=== PATIENT | female | born 1955 | race Caucasian/White ===

== ENCOUNTER → 2017-01-18 | Outpatient (CLI) | payer BC, MEDICARE | END | disposition home or self-care (01) | LOC: GMAJ 10:34 | PROVIDERS: ATTEND Family Medicine | DX: E53.8 Deficiency of other specified B group vitamins (principal); E03.9 Hypothyroidism, unspecified; M89.9 Disorder of bone, unspecified ==

== ENCOUNTER → 2017-07-22 | Outpatient (CLI) | payer OTHER, MEDICARE | LOC: LAB.O 13:33 | PROVIDERS: ATTEND Nurse Practitioner Family | DX: R06.02 Shortness of breath (principal) ==

== ENCOUNTER → 2017-07-26 | Outpatient (CLI) | payer OTHER, MEDICARE ==
--- NOTE | 2017-07-27 09:42 | MRI ---
MRI right shoulder without contrast INDICATION: Shoulder pain rotator cuff tear limited range of motion no specific date of onset TECHNIQUE: Noncontrast MR imaging right shoulder standard protocol FINDINGS: Minimal AC joint arthrosis. Mild subacromial and subdeltoid bursal edema. There is tendinopathy fraying and interstitial low-grade fissuring of the distal supraspinatus and infraspinatus. Mild cystic change adjacent to the infraspinatus attachment. No high-grade partial or full-thickness rotator cuff tear. Very minimal grade 1 fatty marbling of the rotator cuff muscle bellies without advanced atrophy. Mild subscapular is tendinosis. No bicep rupture or dislocation. IMPRESSION: Mild subacromial and subdeltoid bursitis Rotator cuff tendinopathy without high-grade partial or full-thickness tears with low-grade fraying and interstitial fissuring distal supraspinatus and infraspinatus Mild cystic change bare area humerus posterior laterally Minimal AC joint osteoarthrosis Electronically signed by: Chavo Montgomery MD 07/27/2017 9:41 AM CDT
== END ==
LOC: MRI 13:48
PROVIDERS: ATTEND Orthopaedic Surgery
DX: M75.101 Unspecified rotator cuff tear or rupture of right shoulder, not specified as traumatic (principal); M19.011 Primary osteoarthritis, right shoulder; M75.51 Bursitis of right shoulder

== ENCOUNTER 2017-10-19 07:55 | Day surgery (SDC) | payer OTHER, MEDICARE ==
--- NOTE | 2017-10-17 11:58 | HP ---
CHIEF COMPLAINT: Left hand numbness and pain. HISTORY OF PRESENT ILLNESS: Ms. Salazar is a 62-year-old female with a history of pain and numbness in the left hand. She has had this going on for quite a while and has had an EMG which reveals evidence of both carpal tunnel syndrome and cubital tunnel syndrome. She has had anti-inflammatories and continues to have symptoms that are limiting her activities. Because of that, she is requesting operative intervention. After discussing the risks, benefits and alternatives to ulnar nerve transposition and carpal tunnel release, the patient has given informed consent for those procedures. PAST SURGICAL HISTORY: 1. Appendectomy. 2. Hysterectomy. 3. Laminectomy. 4. Lumpectomy. 5. Lumbar fusion. 6. Cardiac catheterization. 7. Bilateral thoracic outlet surgery. 8. Right foot surgery. 9. Cervical fusion. MEDICATIONS: 1. Singulair. 2. Thyroid. ALLERGIES: NO KNOWN DRUG ALLERGIES. CODE STATUS: Full code. IMMUNIZATIONS: Up to date. FAMILY HISTORY: None pertinent to today's complaint. SOCIAL HISTORY: The patient does not smoke or use any illicit drugs. She does drink on occasion. REVIEW OF SYSTEMS: Negative except as indicated in the History of Present Illness. PHYSICAL EXAMINATION: VITAL SIGNS: Blood 136/80. Pulse 78. Height 5'2". Weight 115 pounds. MENTAL STATUS: The patient is awake, alert, and is able to give a good history and participate in the physical. The patient is oriented to person, place and time. SKIN: Normal tone and turgor. MUSCULOSKELETAL: She has positive Tinel's at both the elbow and the wrist. She has positive carpal compression test. She has decrease in digital abduction strength. She has full range of motion of the elbow, wrist and digits. IMAGING: EMG shows evidence of carpal tunnel syndrome and cubital tunnel syndrome. These are consistent with physical examination. ASSESSMENT: 1. Carpal tunnel syndrome. 2. Cubital tunnel syndrome. PLAN: The plan at this point is for carpal tunnel release as well as ulnar nerve transposition. We have discussed the risks, benefits, and alternatives to that and the patient has given informed consent. #[id number] [facility]
[~2017-10-19 07:55] MED LIST: BUPIVACAINE 0.25% INJ 30 ML VIAL INJ ONE; BUPIVACAINE 0.5% 30 ML VIAL INJ ONE; LACTATED RINGERS 1,000 ML ONE; LIDOCAINE 1% 10 ML VIAL INJ ONE; MIDAZOLAM INJ 2 MG/2 ML VIAL ONE; SCOPOLAMINE PATCH 1.5MG 1 EA TD ONE; SODIUM CHL 0.9% 100ML MINI-BAG 100 ML IVPB ONE; ceFAZolin SODIUM 1 GM VIAL ONE; fentaNYL CITRATE INJ 50 MCG/ML AMP ONE
[2017-10-19] MEDS: ceFAZolin SODIUM 1 GM VIAL ONE ×2 (08:02→09:06)
[2017-10-19] MEDS: VANCOMYCIN HCL INJ 1,000 MG VIAL IVPB ONE ×2 (08:03→09:06)
[2017-10-19] MEDS ORDERED: ACETAMINOPHEN IV 1000MG 100 ML ONE (08:16)
[2017-10-19] MEDS ORDERED: LIDOCAINE 1% 10 ML VIAL INJ ONE (10:00)
[2017-10-19] MEDS ORDERED: METOCLOPRAMIDE HCL INJ 10 MG/2 ML VIAL IV ONE ×3 (10:00→11:00)
[2017-10-19] MEDS ORDERED: ePHEDrine SULF 50 MG/ML IV ONE (10:00)
[2017-10-19] MEDS ORDERED: PROPOFOL 200 MG/20 ML VIAL IV ONE (10:00)
[2017-10-19] MEDS ORDERED: DEXAMETHASONE INJ 10 MG/ML VIAL IV ONE (10:00)
[2017-10-19] MEDS ORDERED: ONDANSETRON INJ 4 MG/2 ML VIAL ONE (10:08)
[2017-10-19 11:59] VITALS: BP 132/76; TEMP 97.5; O2SAT 97
--- NOTE | 2017-10-21 09:20 | OP ---
DATE OF PROCEDURE: 10/19/17 PREOPERATIVE DIAGNOSIS: 1. Cubital tunnel syndrome. 2. Carpal tunnel syndrome. POSTOPERATIVE DIAGNOSIS: 1. Cubital tunnel syndrome. 2. Carpal tunnel syndrome. PROCEDURE: 1. Ulnar nerve transposition. 2. Carpal tunnel release. SURGEON: Huan Dickerson MD. SPARERIBS TRIMMER: Brendon Jacobs CST, SA-C. ANESTHESIA: General anesthesia. COMPLICATIONS: None. FINDINGS: 1. Thickening of the transverse carpal ligament. 2. Flattening and subluxation of the ulnar nerve across the cubital tunnel. INDICATION: Ms. Salazar has a history of symptoms consistent with both carpal tunnel and cubital tunnel syndromes. She has dysfunction in her daily life secondary to these symptoms and has requested operative intervention. After discussing the risks, benefits and alternatives to that, the patient has given informed consent for those procedures. PROCEDURE: The patient was brought to the Operating Room and placed in the supine position. General anesthesia was induced and the patient's arm was sterilely prepped and draped. Following prepping and draping, attention was focused on the carpal tunnel. A longitudinal incision was made and blunt dissection was carried down to the transverse carpal ligament. The transverse carpal ligament was sharply incised and a [place] elevator was passed both proximally and distally used to ensure complete release of the ligament. Once release had been confirmed, the wound was very thoroughly irrigated and the closed with Nylon suture. The wound was covered and attention was then focused on the elbow. An incision was made midway between the medial epicondyle and olecranon. Dissection was carried down and the ulnar nerve was identified proximally. Vessel loop was passed across the nerve and it was used to manipulate the nerve with as little tension as possible. Following that, dissection was carried distally and the nerve was released from the cubital tunnel. A full thickness flap was made medially and after ensuring complete release, the nerve was transposed. The wound was very thoroughly irrigated and the medial flap was reapproximated to the periosteum of the medial epicondylar region. The nerve was protected throughout and after transposition, it was confirmed that the nerve was free of any adhesions. The wound was then closed with a combination of running and interrupted subcuticular stitches as well as Nylon. Sterile dressings were placed. The patient was placed in a splint, awoken from anesthesia and taken to Recovery. POSTOPERATIVE INSTRUCTIONS: The patient will followup with us in approximately two days. She has been instructed to do range of motion of the digits. #[id number] [facility]
== END 2017-10-19 11:50 | disposition home or self-care (01) ==
LOC: AMB 07:55
PROVIDERS: ATTEND Orthopaedic Surgery
DX: G56.02 Carpal tunnel syndrome, left upper limb (principal); G56.22 Lesion of ulnar nerve, left upper limb; I10 Essential (primary) hypertension; K21.9 Gastro-esophageal reflux disease without esophagitis; Z87.891 Personal history of nicotine dependence; Z88.8 Allergy status to other drugs, medicaments and biological substances; Z79.899 Other long term (current) drug therapy
CPT/HCPCS: 01710; 64718; 64721; 87070; J0690; J1100; J2250; J2405; J2765; J3010; J3370; J3490; J7050; J7120

== ENCOUNTER → 2017-11-16 | Outpatient (CLI) | payer OTHER, MEDICARE ==
--- NOTE | 2017-11-16 16:14 | MRI ---
EXAM DESCRIPTION: Brain w/o Contrast: MRI. CLINICAL HISTORY: TRANSIENT CEREBRAL ISCHEMIC ATTACK COMPARISON: None. TECHNIQUE: Multiplanar, high-field MRI unit, multiple diffusion sequences, multiple conventional sequences without contrast. FINDINGS: Multiple small foci of hyperintense FLAIR and T2-weighted signal predominantly in the subcortical white matter compared to the periventricular white matter. More in the frontal and parietal lobes and occipital lobes.. No hemorrhage, no cerebral edema, no diffusion restriction. Normal signal in the bilateral basal ganglia. Normal signal in the brainstem and cerebellar hemispheres. No hemorrhage, no cerebral edema, no mass-effect. Concordance of the diffusion and non-diffusion sequences with no diffusion restriction. Cortical sulci, ventricles, and other CSF spaces, and the subdural spaces are normally configured. No effacement or displacement. No midline shift. No extra-axial hemorrhage. Normal flow signal void in the major vessels of the alturas Kerr, and the venous sinuses. IACs are symmetric bilaterally. Normal signal in the bilateral mastoid air cells. No mass effect in the bilateral cerebellopontine angles. Pituitary gland occupies most of the sella. Base of the cerebellar tonsils is at the level of the foramen magnum. Minimal mucoperiosteal thickening in the bilateral ethmoid air cells.. The bony calvarium is intact. Included facial and orbital structures are negative. IMPRESSION: 1. Bilateral symmetric scattered small foci of abnormal white matter signal more prominent in the subcortical white matter of the frontal and parietal lobes, and in the periventricular white matter. No hemorrhage and no diffusion restriction. Possibilities include demyelinating process such as multiple sclerosis and cerebral microvascular disease. No extra-axial hemorrhage. Consider follow-up scan with gadolinium IV contrast to evaluate for white matter lesions. 2. Normal noncontrast MRI diffusion scan with no evidence of acute or subacute infarction. Electronically signed by: Brendon Johnson MD 11/16/2017 4:12 PM CDT
== END ==
LOC: MRI 13:00
PROVIDERS: ATTEND Family Medicine
DX: M50.10 Cervical disc disorder with radiculopathy, unspecified cervical region (principal); G45.9 Transient cerebral ischemic attack, unspecified

== ENCOUNTER → 2017-12-20 | Outpatient (CLI) | payer OTHER, MEDICARE ==
--- NOTE | 2017-12-20 17:36 | MRI ---
EXAM DESCRIPTION: Cervical Spine: MRI. CLINICAL HISTORY: M50.821 COMPARISON: Cervical TECHNIQUE: Multiplanar MRI, multiple sequences, non-contrast High-field. FINDINGS: ACDF at C5-6 with interbody fusion device. No abnormal marrow signal soft tissue mass or fluid collection around the hardware. Near-anatomic alignment. Canal and foramina are patent. Posterior elements are unremarkable. Posterior bony fusion of the C6-7 disc space. Minimal narrowing of the ventral canal posterior to the disc space fusion. Posterior elements unremarkable. Bilateral foramina are patent. C4-5: Disc desiccation and significant narrowing of the disc space with anterior disc bulge and spurs. Grade 1 retrolisthesis, 2.5 mm. Posterior C4 endplate and bulging disc abutting the cord with moderate canal narrowing. Bilateral uncinate spurs with moderate right neural foraminal narrowing and mild left neural foraminal narrowing. Facets are negative. Normal signal in the remaining discs with no bulging. Disc spaces preserved. Canal and neural foramina are patent. Facets are unremarkable. 5 mm nodule or cyst in the right thyroid lobe. Small paracervical lymph nodes.. Spinal alignment reduced cervical lordosis.. No cord compression or cord edema. Atlantoaxial joint minimal arthrosis.. Base of the cerebellar tonsils is above the foramen magnum. Paravertebral soft tissues negative.. Vertebral bodies are not compressed at any level. Otherwise normal marrow signal in the remaining vertebral bodies and the posterior elements. IMPRESSION: 1. ACDF at C5-6 with customary position and near-anatomic alignment. No evidence of complications. No canal or neural foraminal stenosis. 2. Partial posterior bony fusion at C6-7. Minimal narrowing of the ventral extradural space at the posterior disc space. Bilateral neural foramina are patent. 3. C4-5 grade 1 retrolisthesis with disc desiccation and moderate spondylosis. Posterior C4 endplate and disc abutting the cord. Moderate right neural foraminal narrowing and mild left neural foraminal narrowing. No nerve root compromise. Electronically signed by: Brendon Johnson MD 12/20/2017 5:35 PM CDT
== END ==
LOC: MRI 10:00
PROVIDERS: ATTEND Family Medicine
DX: M50.821 Other cervical disc disorders at C4-C5 level (principal); M43.22 Fusion of spine, cervical region; M43.12 Spondylolisthesis, cervical region

== ENCOUNTER → 2018-11-06 | Outpatient (CLI) | payer MEDICARE | LOC: GMAJ 14:13 | PROVIDERS: ATTEND Family Medicine | DX: E03.9 Hypothyroidism, unspecified (principal); E78.2 Mixed hyperlipidemia; E78.00 Pure hypercholesterolemia, unspecified ==

== ENCOUNTER → 2019-07-25 | Outpatient (CLI) | payer MEDICARE | LOC: GMAJ 12:05 | PROVIDERS: ATTEND Family Medicine | DX: E03.8 Other specified hypothyroidism (principal); E78.00 Pure hypercholesterolemia, unspecified ==

== ENCOUNTER → 2019-08-21 | Outpatient (CLI) | payer MEDICARE ==
--- NOTE | 2019-08-21 10:13 | MRI ---
EXAM DESCRIPTION: Brain w/oContrast CLINICAL HISTORY: 64 years Female, DEMYELLINATING DISEASE OF CENTRAL NERVOUS SYSTEM COMPARISON: MRI of the brain dated 11/16/2017. TECHNIQUE: Multiplanar multiecho imaging of the brain was performed without the administration of intravenous contrast. FINDINGS: Multiple bilateral frontal and parietal periventricular FLAIR hyperintense foci are identified. 3 new additional FLAIR hyperintense foci are identified in the left frontal and parietal lobes on image #15, series 501. None of these lesions demonstrate restricted diffusion to suggest acute demyelination. No acute major vascular territorial infarct or acute intraparenchymal hemorrhage. No intra-axial or extra-axial fluid collections are identified. The cisterns and ventricles appear normal in caliber. The sella and suprasellar regions demonstrate no gross abnormality. The structures of the posterior fossa are intact. The visualized paranasal sinuses and mastoid air cells appear normal. The globes are intact bilaterally. Review of the bones demonstrates no gross abnormality. IMPRESSION: Slight interval worsening with at least 3 new FLAIR hyperintense foci are identified in the left frontal and parietal lobes. Remainder of the bilateral periventricular FLAIR hyperintense foci appear unchanged. No evidence of restricted diffusion to suggest acute demyelination. Electronically signed by: Gabriela Ramos MD 08/21/2019 10:12 AM CDT
== END ==
LOC: MRI 08:51
PROVIDERS: ATTEND Family Medicine
DX: G37.9 Demyelinating disease of central nervous system, unspecified (principal); G93.9 Disorder of brain, unspecified

== ENCOUNTER → 2019-08-28 | Outpatient (CLI) | payer MEDICARE | LOC: GMAJ 10:37 | PROVIDERS: ATTEND Family Medicine | DX: E03.9 Hypothyroidism, unspecified (principal); I10 Essential (primary) hypertension ==

== ENCOUNTER → 2019-11-28 | Outpatient (CLI) | payer MEDICARE ==
--- NOTE | 2019-11-29 13:45 | MRI ---
EXAM DESCRIPTION: Brain w/wo Contrast: Magnetic Resonance Imaging. CLINICAL HISTORY: 64 years Female OCCLUSION AND STENOSIS COMPARISON: MRI scan of the brain without contrast August 20. TECHNIQUE: Multiplanar, high-field MRI, multiple conventional sequences, without and with gadolinium IV contrast. No adverse reactions. Multiple axial diffusion sequences. FINDINGS: Bilateral multiple foci of hyperintense FLAIR and T2-weighted signal in the periventricular white matter and miranda-white matter junctions of the cerebral hemispheres. Most of the sulci bilaterally are subcortical. Not as hyperintense on the prior study. . No contrast enhancement. No hemorrhage, no cerebral edema, no mass-effect. Stable cyst or Virchow-Scotty's perivascular space in the right basal ganglia. No hemorrhage, no cerebral edema, no mass-effect. Normal contrast enhancement. Normal signal in the brainstem and cerebellar hemispheres. Normal contrast enhancement. Concordance of the diffusion and non-diffusion sequences with no evidence of acute or subacute infarction. Cortical sulci, ventricles, and other CSF spaces, and the subdural spaces are normally configured for patient's age.. No effacement or displacement. No midline shift. No extra-axial hemorrhage. Normal contrast enhancement. Normal flow signal void in the major vessels of the tetlin Kerr, and the venous sinuses. IACs are symmetric bilaterally. Normal signal in the bilateral mastoid air cells. No mass effect in the bilateral Cerebellopontine angles. Normal contrast enhancement. Pituitary gland occupies most of the sella. Normal contrast enhancement. Base of the cerebellar tonsils is at the level of the foramen magnum. Minimal mucoperiosteal thickening in the bilateral paranasal sinuses.. The bony calvarium is intact. IMPRESSION: 1. Stable subcortical multifocal white matter lesions bilaterally with fewer periventricular lesions bilaterally, compared to the prior study, with no hemorrhage, cerebral edema, no mass effect, and no abnormal contrast enhancement. 2. No new lesions in the basal ganglia, brainstem, or cerebellar hemispheres. 3. Normal noncontrast diffusion MRI examination with no evidence of significant ischemia, acute demyelination, or acute or subacute infarction. Electronically signed by: Brendon Johnson MD 11/29/2019 1:43 PM CDT
--- NOTE | 2019-11-29 13:48 | US ---
EXAM DESCRIPTION: Carotid Duplex: ULTRASOUND. CLINICAL HISTORY: 64 years Female OCCLUSION AND STENOSIS OF BILATERAL MIDDLE CEREBRAL ARTERIES COMPARISON: MRI scan of the brain without and with gadolinium IV contrast on this visit. TECHNIQUE: Transcutaneous scanning utilizing miranda-scale and Doppler modes to evaluate the bilateral carotid systems and vertebral arteries. Percentage of diameter of stenosis or no stenosis recorded will be based upon NASCET criteria. FINDINGS: Peak systolic/end diastolic velocities (CM-Sec) CCA Right 84/11 Left 76/23. ICA Right proximal 52/15, mid 57/16. Left proximal 35/16, mid 71/34. Vertebral Right 36/14 Left 39/10. ECA (PS Only) Right 69 left 40. ICA/CCA peak systolic velocity ratio: Right 0.7 Left 0.9 ICA/CCA end diastolic velocity ratio: Right 1.5 Left 1.5 Vertebral arteries: antegrade flow. Comments: Bilateral prostatic calcification. Less than 10% area and diameter stenosis in the mid right ICA. IMPRESSION: 1. Doppler evaluation of the bilateral carotid systems and vertebral arteries shows no hemodynamically significant stenoses (less than 70%). 2. No significant amount of plaque in the carotid arteries bilaterally. Bilateral vertebral arteries showed antegrade-cephalad flow. Electronically signed by: Brendon Johnson MD 11/29/2019 1:46 PM CDT
== END ==
LOC: MRI 09:24
PROVIDERS: ATTEND Psychiatry & Neurology Neurology
DX: Z01.812 Encounter for preprocedural laboratory examination (principal); I66.03 Occlusion and stenosis of bilateral middle cerebral arteries; R90.82 White matter disease, unspecified; I51.7 Cardiomegaly

== ENCOUNTER → 2020-01-23 | Outpatient (CLI) | payer MEDICARE | LOC: GMAJ 11:06 | PROVIDERS: ATTEND Family Medicine | DX: E03.9 Hypothyroidism, unspecified (principal); E78.2 Mixed hyperlipidemia; I10 Essential (primary) hypertension ==